=== PATIENT | male | born 1980 | race Caucasian/White ===

== ENCOUNTER → 2020-03-27 08:36 | Outpatient (BNVA) | payer OTHER, SELFPAY | PROVIDERS: Family Provider Nurse Practitioner Family; PCP Nurse Practitioner Family; Visit Provider Registered Nurse | DX: E29.1 Testicular hypofunction (principal) | CPT/HCPCS: 84403; 85025 ==

== ENCOUNTER 2021-07-09 21:08 | Outpatient (CLI) | payer MEDICAID, SELFPAY | END 2021-07-09 21:09 | disposition home or self-care (01) | PROVIDERS: PCP Registered Nurse; Visit Provider Internal Medicine | DX: E29.1 Testicular hypofunction (principal); N25.81 Secondary hyperparathyroidism of renal origin | CPT/HCPCS: 36415; 82533; 83001; 83002; 84146; 84305; 84402; 84403; 84439; 84443 ==

== ENCOUNTER → 2021-09-10 08:30 | Outpatient (BNVA) | payer MEDICAID, SELFPAY | PROVIDERS: PCP Registered Nurse; Visit Provider Urology | DX: N52.9 Male erectile dysfunction, unspecified (principal); B35.3 Tinea pedis; E29.1 Testicular hypofunction | CPT/HCPCS: 81003 ==

== ENCOUNTER → 2021-10-05 09:53 | Outpatient (BNVA) | payer MEDICAID, SELFPAY | PROVIDERS: PCP Registered Nurse; Visit Provider Internal Medicine | DX: N52.9 Male erectile dysfunction, unspecified (principal); E29.1 Testicular hypofunction; R68.82 Decreased libido; N25.81 Secondary hyperparathyroidism of renal origin; E55.9 Vitamin D deficiency, unspecified; R53.83 Other fatigue; Z98.890 Other specified postprocedural states; Z90.79 Acquired absence of other genital organ(s) | CPT/HCPCS: 99214 ==

== ENCOUNTER → 2021-12-04 14:46 | Outpatient (BNVA) | payer MEDICAID, SELFPAY | PROVIDERS: PCP Registered Nurse; Visit Provider Counselor Professional | DX: F41.9 Anxiety disorder, unspecified (principal) | CPT/HCPCS: 90834 ==

== ENCOUNTER → 2021-12-18 14:33 | Outpatient (BNVA) | payer OTHER, MEDICAID, SELFPAY | PROVIDERS: PCP Registered Nurse; Visit Provider Counselor Professional | DX: F41.9 Anxiety disorder, unspecified (principal) | CPT/HCPCS: 90847 ==

== ENCOUNTER → 2022-01-15 14:46 | Outpatient (BNVA) | payer OTHER, MEDICAID, SELFPAY | PROVIDERS: PCP Registered Nurse; Visit Provider Counselor Professional | DX: F41.9 Anxiety disorder, unspecified (principal) | CPT/HCPCS: 90837 ==

== ENCOUNTER → 2022-02-05 13:46 | Outpatient (BNVA) | payer OTHER, MEDICAID, SELFPAY | PROVIDERS: PCP Registered Nurse; Visit Provider Counselor Professional | DX: F41.9 Anxiety disorder, unspecified (principal) | CPT/HCPCS: 90834 ==

== ENCOUNTER → 2022-02-19 09:46 | Outpatient (BNVA) | payer OTHER, MEDICAID, SELFPAY | PROVIDERS: PCP Registered Nurse; Visit Provider Social Worker | DX: F33.0 Major depressive disorder, recurrent, mild (principal) | CPT/HCPCS: 90834 ==

== ENCOUNTER → 2022-02-26 14:46 | Outpatient (BNVA) | payer OTHER, MEDICAID, SELFPAY | PROVIDERS: PCP Registered Nurse; Visit Provider Counselor Professional | DX: F41.9 Anxiety disorder, unspecified (principal) | CPT/HCPCS: 90847 ==

== ENCOUNTER → 2022-03-05 09:50 | Outpatient (BNVA) | payer OTHER, MEDICAID, SELFPAY | PROVIDERS: PCP Registered Nurse; Visit Provider Social Worker | DX: F33.0 Major depressive disorder, recurrent, mild (principal) | CPT/HCPCS: 90834 ==

== ENCOUNTER → 2022-03-11 08:59 | Outpatient (BNVA) | payer OTHER, MEDICAID, SELFPAY | PROVIDERS: PCP Registered Nurse; Visit Provider Internal Medicine | DX: E29.1 Testicular hypofunction (principal); R53.83 Other fatigue; E55.9 Vitamin D deficiency, unspecified; N25.81 Secondary hyperparathyroidism of renal origin; Z90.79 Acquired absence of other genital organ(s); Z98.890 Other specified postprocedural states | CPT/HCPCS: 81003; 99213; 99214 ==

== ENCOUNTER → 2022-03-23 14:27 | Outpatient (BNVA) | payer OTHER, MEDICAID, SELFPAY | PROVIDERS: PCP Registered Nurse; Visit Provider Social Worker | DX: F33.0 Major depressive disorder, recurrent, mild (principal) | CPT/HCPCS: 90834 ==

== ENCOUNTER → 2022-04-02 13:49 | Outpatient (BNVA) | payer OTHER, MEDICAID, SELFPAY | PROVIDERS: PCP Registered Nurse; Visit Provider Counselor Professional | DX: F41.9 Anxiety disorder, unspecified (principal) | CPT/HCPCS: 90834 ==

== ENCOUNTER → 2022-04-23 13:48 | Outpatient (BNVA) | payer OTHER, MEDICAID, SELFPAY | PROVIDERS: PCP Registered Nurse; Visit Provider Counselor Mental Health | DX: F41.9 Anxiety disorder, unspecified (principal); F43.22 Adjustment disorder with anxiety | CPT/HCPCS: 90832 ==